=== PATIENT | female | born 1960 | race African-American/Black ===

== ENCOUNTER 2017-10-23 11:57 | Emergency (ER) | payer SELFPAY ==
[2017-10-23 12:18] VITALS: BP 125/81; PULSE 85; TEMP 98.2; BMI 26.6
[2017-10-23] MEDS ORDERED: diphenhydrAMINE HCL 25 MG CAPSULE (FP) PO ONE ×2 (13:30→13:31)
--- NOTE | 2017-10-23 13:34 | PDOC ---
History of Present Illness - General Chief Complaint: Bite Stated Complaint: RASH ON LEGS Time Seen by Provider: 10/23/17 13:08 History Source: Patient Exam Limitations: No Limitations - History of Present Illness Initial Comments: 10/23/17 13:30 Patient is a [57 y/o female on methadone, risperadol and lexapro. Reports that she has not taken the medication in two days. Was sitting on her bed today and started to have generalized itching. " Wants to be checked for spores" Denies rash. Denies any chest pain or shortness of breath, denies feeling of anxiety of hurting herself or others. ] Past Medical History: [Denies]. Allergies: No known allergies Medications: [Methadone, Risperdal and Lexapro] Family History: Non-contributory Social History: Denies smoking, alcohol use, or IVDU Review of Systems GENERAL/CONSTITUTIONAL: [No fever or chills. No weakness. No weight change.] HEAD, EYES, EARS, NOSE AND THROAT: [No change in vision. No ear pain or discharge. No sore throat. Eyes are itchy] CARDIOVASCULAR: [No chest pain or shortness of breath.] RESPIRATORY: [No cough, wheezing, or hemoptysis.] GASTROINTESTINAL: [No nausea, vomiting, diarrhea or constipation. No rectal bleeding.] GENITOURINARY: [No dysuria, frequency, or change in urination.] MUSCULOSKELETAL: [No joint or muscle swelling or pain. No neck or back pain.] SKIN : [No rash or easy bruising. Pruritus to upper extremities] NEUROLOGIC: [No headache, vertigo, loss of consciousness, or loss of sensation.] PSYCHIATRIC: [No depression or anxiety.] ENDOCRINE: [No increased thirst. No abnormal weight change.] HEMATOLOGIC/LYMPHATIC: [No anemia, easy bleeding, or history of blood clots.] ALLERGIC/IMMUNOLOGIC: [No hives or skin allergy. No latex allergy.] Physical Exam: GENERAL: [The patient is awake, alert, and fully oriented, in no acute distress. ] HEAD: [Normal with no signs of trauma.] EYES: [Pupils equal, round and reactive to light, extraocular movements intact, sclera anicteric, conjunctiva clear, no foreign body or discoloration. ] ENT: [Ears normal, nares patent, oropharynx clear without exudates. Moist mucous membranes. No uvula deviation] NECK: [Normal range of motion, supple without lymphadenopathy, JVD, or masses.] LUNGS: [Breath sounds equal, clear to auscultation bilaterally. No wheezes, and no crackles.] HEART: [Regular rate and rhythm, normal S1 and S2 without murmur, rub or gallop. ] ABDOMEN: [Soft, nontender, normoactive bowel sounds. No guarding, no rebound. No masses. No bruising or abrasions] RECTAL : [Guaiac negative, normal rectal tone.] MUSCULOSKELETAL: [Normal range of motion, no edema. No clubbing or cyanosis. No cords, erythema, or tenderness. No CVA Tenderness with fist.] NEUROLOGICAL: [Cranial nerves II through XII grossly intact. Normal speech, normal gait.] PSYCH: [Normal mood, flat affect.] SKIN: [Warm, Dry, normal turgor, no rashes or lesions noted.] 10/23/17 13:58 10/23/17 16:54 Past History - Past Medical History Allergies/Adverse Reactions: Allergies Allergy/AdvReac Type Severity Reaction Status Date / Time cats and hayfever Allergy Intermediate Itching Uncoded 10/23/17 12:13 Home Medications: Ambulatory Orders Methadone HCl [Methadone Intensol] 130 mg PO DAILY 08/15/14 Diphenhydramine HCl [Benadryl -] 25 mg PO Q8H #15 capsule 10/23/17 Escitalopram Oxalate [Lexapro -] 5 mg PO DAILY 10/23/17 Risperidone [Risperdal -] 0.5 mg PO ASDIR 10/23/17 Asthma: Yes COPD: No Liver Disease: Yes (cirrhosis) - Surgical History GI Surgery: Yes (GASTRIC BYPASS) - Immunization History Immunization Up to Date: Yes - Suicide/Smoking/Psychosocial Hx Smoking History: Current every day smoker Have you smoked in the past 12 months: Yes Number of Cigarettes Smoked Daily: 10 Information on smoking cessation initiated: No Hx Alcohol Use: No Drug/Substance Use Hx: No Substance Use Type: Alcohol, Cocaine, Heroin Hx Substance Use Treatment: Yes (in [facility]) *Physical Exam - Vital Signs Last Vital Signs Temp Pulse Resp BP Pulse Ox 98.2 F 85 16 125/81 98 10/23/17 12:14 10/23/17 12:14 10/23/17 12:14 10/23/17 12:14 10/23/17 12:14 Medical Decision Making - Medical Decision Making 10/23/17 14:02 A/P: Patient here for evaluation of itchiness to upper extremities and itchy eyes, has not taken her Risperdal or her Lexapro in 2 days which may be attributing to her symptoms. Patient denies any abdominal pain, no chest pain or shortness of breath. Benadryl 25 mg by mouth ordered will reevaluate 10/23/17 16:54 Patient states that itching is resolved after the Benadryl will follow-up with her primary care doctor tomorrow. There is no visible rash, eyes are clear. I discussed the physical exam findings, ancillary test results and final diagnoses with the patient. I answered all of the patient's questions. The patient was satisfied with the care received and felt comfortable with the discharge plan and treatment plan. The patient will call to arrange follow-up and will return to the Emergency Department with any new, persistent or worsening symptoms. *DC/Admit/Observation/Transfer Diagnosis at time of Disposition: Itching - Discharge Dispostion Disposition: HOME Condition at time of disposition: Good Admit: No - Prescriptions Prescriptions: Diphenhydramine HCl [Benadryl -] 25 mg PO Q8H #15 capsule - Referrals Referrals: Eunice Carvajal MD [Primary Care Provider] - - Patient Instructions Printed Discharge Instructions: DI for Itching Additional Instructions: PLease take benadryl as needed, one tablet every 8 hours. Please take your medication as prescribed. Follow up with PMD. - Post Discharge Activity
== END 2017-10-23 14:44 | disposition home or self-care (01) ==
LOC: JERFT 11:57
DX: L29.8 Other pruritus (principal); Z91.14 Patient's other noncompliance with medication regimen; J45.909 Unspecified asthma, uncomplicated; K74.60 Unspecified cirrhosis of liver; F17.210 Nicotine dependence, cigarettes, uncomplicated; Z98.84 Bariatric surgery status
CPT/HCPCS: 99281-25

== ENCOUNTER 2019-05-01 09:14 | Emergency (ER) | payer OTHER | END 2019-05-01 12:16 | disposition home or self-care (01) | LOC: JERFT 09:14 ==

== ENCOUNTER 2019-08-27 21:28 | Emergency (ER) | payer OTHER ==
[2019-08-27 21:48] VITALS: BP 105/72; PULSE 89; TEMP 98.2; BMI 24.7
--- NOTE | 2019-08-28 00:11 | PDOC ---
History of Present Illness - General Chief Complaint: Pain Stated Complaint: ABD PAIN Time Seen by Provider: 08/27/19 23:48 - History of Present Illness Initial Comments: 59 year female history of gastric bypass, allergic rhinitis, on methadone (20 daily) presents with a few chronic complaints including abdominal pain, upper back pain, and congestion. She states that she has had this abdominal pain for the past few months intermittently and states that she has been diagnosed with intestinal obstruction a week ago at [facility] and states that they discharged her despite stating that it didn't respond. Denies nausea, vomiting, fevers, chest pain, or other symptoms but does admit to diarrhea. 08/28/19 00:42 Past History - Past Medical History Allergies/Adverse Reactions: Allergies Allergy/AdvReac Type Severity Reaction Status Date / Time cat dander Allergy Intermediate Itching Verified 08/28/19 03:17 cats and hayfever Allergy Intermediate Itching Uncoded 08/28/19 03:16 Home Medications: Ambulatory Orders Methadone [Dolophine -] 50 mg PO DAILY 03/25/18 Simethicone Liquid [Mylicon Liquid -] 40 mg PO QID PRN #1 bottle 08/28/19 Anemia: No Asthma: No Cancer: No Cardiac Disorders: No CVA: No COPD: No CHF: No Dementia: No Diabetes: No GI Disorders: Yes (COLITIS) Disorders: No HTN: No Hypercholesterolemia: No Kidney Stones: No Liver Disease: No Seizures: No Thyroid Disease: No - Surgical History Abdominal Surgery: No Cardiac Surgery: No Cholecystectomy: No GI Surgery: Yes (GASTRIC BYPASS) Lung Surgery: No Neurologic Surgery: No Orthopedic Surgery: No - Immunization History Immunization Up to Date: Yes - Psycho Social/Smoking Cessation Hx Smoking History: Never smoked Have you smoked in the past 12 months: Yes Number of Cigarettes Smoked Daily: 2 Cigars Per Day: 0 Information on smoking cessation initiated: No Hx Alcohol Use: No Drug/Substance Use Hx: No Substance Use Type: Cocaine, Marijuana Hx Substance Use Treatment: No Review of Systems - Review of Systems Constitutional: No: Chills, Diaphoresis, Fever HEENTM: No: Blurred Vision, Tearing, Recent change in vision Respiratory: No: Cough, Orthopnea, Shortness of Breath Cardiac (ROS): No: Chest Pain, Irregular Heart Rate ABD/GI: Yes: Diarrhea. No: Nausea, Vomiting : No: Dysuria, Discharge, Frequency Musculoskeletal: Yes: Back Pain. No: Joint Pain, Joint Swelling Neurological: No: Headache, Numbness, Paresthesia Psychiatric: No: Anxiety, Depression Endocrine: No: Flushing, Intolerance to Cold Hematologic/Lymphatic: No: Anemia, Blood Clots, Easy Bleeding *Physical Exam - Vital Signs Last Vital Signs Temp Pulse Resp BP Pulse Ox 98.2 F 89 17 105/72 100 08/27/19 21:33 08/27/19 21:33 08/27/19 21:33 08/27/19 21:33 08/27/19 21:33 - Physical Exam General Appearance: Yes: Nourished, Appropriately Dressed. No: Apparent Distress HEENT: positive: EOMI, FREEDOM, Normal ENT Inspection, Normal Voice, Nasal Congestion Neck: positive: Trachea midline, Normal Thyroid, Supple, Lymphadenopathy (R). negative: Tender, Rigid Respiratory/Chest: positive: Lungs Clear, Normal Breath Sounds. negative: Chest Tender, Respiratory Distress Cardiovascular: positive: Regular Rhythm, Regular Rate Gastrointestinal/Abdominal: positive: Soft, Protuberent. negative: Normal Bowel Sounds (hyperactive bs), Tender, Flat, Guarding, Rebound, Tenderness, Hernia, Mass Lymphatic: negative: Adenopathy, Tenderness Musculoskeletal: positive: Normal Inspection. negative: Decreased Range of Motion Extremity: positive: Normal Capillary Refill, Normal Inspection, Normal Range of Motion. negative: Tender Integumentary: positive: Normal Color, Dry, Warm Neurologic: positive: Fully Oriented, Alert, Normal Mood/Affect, Normal Response , Motor Strength 5/5 ED Treatment Course - LABORATORY CBC & Chemistry Diagram: 08/28/19 00:35 08/28/19 00:35 Medical Decision Making - Medical Decision Making 59 year old female with history of bypass presenting with "bloating" and diarrhe afor the past few days. denies fevers, chills, nausea, vomiting, or other symptoms. Labs WNL and CT demonstrating gas throughout bowels and concern for diarrheal illness. There was also a read of pneumatosis but discussed this with radiology and they did not believe that it was due to ischemia and instead due to distension. Patient has normal lactic acid, stbale vitals, and abdominal exam is non peritoneal or surgical. Tolerated PO. Will DC patient with simethacone as she feels better. 08/28/19 03:24 Discharge - Discharge Information Problems reviewed: Yes Clinical Impression/Diagnosis: Pain Chronic knee pain Qualifiers: Laterality: bilateral Qualified Code(s): M25.561 - Pain in right knee; M25.562 - Pain in left knee; G89.29 - Other chronic pain Abdominal pain Qualifiers: Abdominal location: generalized Qualified Code(s): R10.84 - Generalized abdominal pain Disposition: HOME - Admission No - Additional Discharge Information Prescriptions: Simethicone Liquid [Mylicon Liquid -] 40 mg PO QID PRN #1 bottle PRN Reason: Gas - Follow up/Referral Referrals: [facility] [Provider Group] - Patient Discharge Instructions Patient Printed Discharge Instructions: Diarrhea Additional Instructions: Please use the simeticone as directed for the gas. Please continue to eat and drink soft foods easy on your stomach. Please follow up with your doctor or use the doctor on this sheet. Please return to the ED if you have new or worsening symptoms. - Post Discharge Activity
[2019-08-28] MEDS ORDERED: FAMOTIDINE 20 MG/50 ML IVPB 20 MG/50 ML MG IVPB ONE (00:22)
--- NOTE | 2019-08-28 00:36 | PDOC ---
Attending Attestation - Resident Resident Name: Israel Marcano - ED Attending Attestation I have performed the following: I have examined & evaluated the patient, The case was reviewed & discussed with the resident, I agree w/resident's findings & plan, Exceptions are as noted - HPI HPI: 08/28/19 00:59 Ms Ron is a 59 yo F with a h/o gastric bypass and multiple intestinal infections, who presents to the emergency department with left sided, crampy abdominal pain for approximately 4 days. The patient reports her pain is localized to the left upper quadrant. She reports associated constipation 4 days ago, and multiple episodes of malodorous nonbloody diarrhea 3 days ago. She reports nausea and nonbloody/nonbilious vomiting, but denies any changes in appetite.Patient reports her symptoms are similar to when she's had an intestinal infection in the past. She denies any fever or chills. She denies any dysuria, hematuria, frequency, or urgency. She denies any recent travel or sick contacts. - Physicial Exam PE: 08/28/19 01:00 CONSTITUTIONAL: Well-appearing; well-nourished; in no apparent distress HEAD: Normocephalic; atraumatic EYES: PERRL; EOM intact ENMT: External appears normal; normal oropharynx NECK: Supple; non-tender; no cervical lymphadenopathy. CARD: Normal S1, S2; no murmurs, rubs, or gallops RESP: Normal chest excursion with respiration; breath sounds clear and equal bilaterally; no wheezes, rhonchi, or rales ABD: Surgical scar. Mild LUQ tenderness, soft, but distended. Decreased bowel sounds. No palpable organomegaly, no palpable hernias EXT: Normal ROM in all four extremities; non-tender to palpation; distal pulses intact SKIN: Warm, dry, no rash NEURO: No focal neurological deficiencies. - Medical Decision Making 08/28/19 01:00 Patient is a 58-year-old female status post gastric bypass who presents to the ER with left-sided abdominal pain PT also reports shortness of breath/wheezing Differential diagnoses includes colitis versus acute gastroenteritis versus ileus versus SBO. Will obtain CBC/CMP/UA. Will obtain CT w/IV contrast Re assess 08/28/19 01:01 Respiratory symptoms have improved after saline neb 08/28/19 03:27 Laboratory Tests 08/28/19 08/28/19 08/28/19 00:35 00:35 00:35 WBC 4.9 Hgb 12.0 Hct 36.8 Plt Count 154 INR 0.97 BUN [address]: EXAM: ABDOMEN \T\ PELVIS CT WITH CONTR HISTORY: Rule out obstruction COMPARISON: None. FINDINGS: Lung bases are clear. The visualized cardiac chambers are normal size and configuration. Status post cholecystectomy with mild biliary duct dilation. Normal pancreas, spleen, adrenal glands and kidneys. Status post gastric bypass without bowel obstruction or inflammation. There is diffuse colonic distention with air and liquid stool up to 6.7 cm which may indicate colonic ileus and/or diarrheal illness. No colonic wall thickening, although there is mild right colonic pneumatosis.. There is no aortic aneurysm. There is no significant retroperitoneal lymphadenopathy. The appendix is normal The uterus and adnexal structures are grossly normal though partially obscured by streak artifact from a right hip prosthesis. Urinary bladder is normal but partially obscured. There is no pelvic free fluid. No discrete pelvic lymphadenopathy is identified. IMPRESSION: Colonic ileus and/or diarrheal illness without bowel obstruction or bowel wall thickening. Right colonic pneumatosis also raises the possibility of bowel ischemia although this is considered less likely. 08/28/19 04:10 Pt po challenged Tolerated this with no vomiting Review of prior CT, demonstrates similar findings Call placed to radiologist: what he has read as pneumatosis is not clearly that and he does not believe this represents ischemic bowel Will ask pt to follow up with PMD Return to the ER for any other concerns or complaints
[2019-08-28] MEDS ORDERED: SODIUM CHLORIDE FOR INHALATION 3 ML VIAL.NEB IH ONE (00:38)
[2019-08-28 00:55] LABS: BASO % 0.5 % (0-2.0); HEMATOCRIT 36.8 % (32.4-45.2); LYMPH % 35.8 % (8-40); MCH 30.2 pg (25.7-33.7); MCHC 32.7 g/dl (32.0-36.0); MEAN CELL VOLUME 92.4 fl (80-96); MEAN PLT VOLUME 8.7 fl (7.5-11.1); MONO % 9.1 % (3.8-10.2); NEUT % 52.6 % (42.8-82.8); PLATELET COUNT 154 K/MM3 (134-434); RBC 3.98 M/mm3 (3.60-5.2); WHITE BLOOD COUNT 4.9 K/mm3 (4.0-10.0)
[2019-08-28 01:06] LABS: INR 0.97 (0.83-1.09); PROTHROMBIN TIME (PATIENT) 11.5 SEC (9.7-13.0)
[2019-08-28 01:22] LABS: ALBUMIN 4.1 g/dl (3.4-5.0); BILIRUBIN,TOTAL 0.6 mg/dL (0.2-1); BLOOD UREA NITROGEN 9.5 mg/dL (7-18); CALCIUM 9.1 mg/dL (8.5-10.1); CREATININE 0.9 mg/dL (0.55-1.3); POTASSIUM 3.6 mmol/L (3.5-5.1); TOT PROT 7.6 g/dl (6.4-8.2)
== END 2019-08-28 04:32 | disposition home or self-care (01) ==
LOC: JER 21:28
PROC: 3E033GC Introduction of Other Therapeutic Substance into Peripheral Vein, Percutaneous Approach (ICD-10-PCS; principal; 2019-08-27)
PROC: 3E0F7GC Introduction of Other Therapeutic Substance into Respiratory Tract, Via Natural or Artificial Opening (ICD-10-PCS; 2019-08-27)
DX: R10.84 Generalized abdominal pain (principal); R14.1 Gas pain; M25.561 Pain in right knee; M25.562 Pain in left knee; G89.29 Other chronic pain; Z98.84 Bariatric surgery status; Z87.19 Personal history of other diseases of the digestive system; J30.81 Allergic rhinitis due to animal (cat) (dog) hair and dander; Z91.048 Other nonmedicinal substance allergy status
CPT/HCPCS: 36415; 74177-TC; 80053; 83605; 83690; 85025; 85610; 94640; 96365; 99282-25

== ENCOUNTER 2021-01-10 09:07 | Emergency (ER) | payer OTHER ==
[2021-01-10 09:19] VITALS: TEMP 97.8; BMI 20.9
[2021-01-10 10:07] VITALS: BP 113/69; PULSE 81
[2021-01-10 11:14] LABS: BASO % 0.5 % (0-2.0); EOS % 1.5 % (0-4.5); HEMATOCRIT 30.8 % (32.4-45.2); LYMPH % 32.3 % (8-40); MCH 30.7 pg (25.7-33.7); MCHC 32.5 g/dl (32.0-36.0); MEAN CELL VOLUME 94.3 fl (80-96); MEAN PLT VOLUME 9.5 fl (7.5-11.1); MONO % 5.9 % (3.8-10.2); NEUT % 59.8 % (42.8-82.8); PLATELET COUNT 152 K/MM3 (134-434); RBC 3.27 M/mm3 (3.60-5.2); RDW 15.5 % (11.6-15.6); WHITE BLOOD COUNT 3.6 K/mm3 (4.0-10.0)
[2021-01-10 11:28] LABS: CHLORIDE 110 mmol/L (98-107); POTASSIUM 3.9 mmol/L (3.5-5.1); SODIUM 143 mmol/L (136-145)
[2021-01-10 11:30] LABS: CALCIUM 9.6 mg/dL (8.5-10.1)
[2021-01-10 11:31] LABS: ANION GAP 9 MMOL/L (8-16); BLOOD UREA NITROGEN 14.7 mg/dL (7-18); CO2 24 mmol/L (21-32); GLUCOSE,RANDOM 86 mg/dL (74-106)
[2021-01-10 11:34] LABS: CREATININE 0.8 mg/dL (0.55-1.3); SGOT/AST 20 U/L (15-37); SGPT/ALT 28 U/L (13-61)
[2021-01-10 11:35] LABS: BILIRUBIN,TOTAL 0.5 mg/dL (0.2-1)
[2021-01-10 11:36] LABS: TOT PROT 7.2 g/dl (6.4-8.2)
[2021-01-10 11:37] LABS: ALK PHOS 108 U/L (45-117)
[2021-01-10] MEDS ORDERED: LIDOCAINE 5% TOPICAL PATCH TP ONE (12:57)
[2021-01-10] MEDS ORDERED: ACETAMINOPHEN 500 MG TABLET (FP) PO ONE (12:57)
[2021-01-10] MEDS ORDERED: LIDOCAINE 5% TOPICAL PATCH ONE (13:07)
[2021-01-10] MEDS ORDERED: ACETAMINOPHEN 325 MG TABLET (FP) ONE (13:07)
[2021-01-10 14:05] LABS: PH,URINE 5.5 (5.0-8.0); URINE APPEARANCE CLEAR; URINE BILIRUBIN NEGATIVE (NEGATIVE); URINE COLOR YELLOW; URINE GLUCOSE (UA) NEGATIVE (NEGATIVE); URINE KETONE NEGATIVE (NEGATIVE); URINE LEUK ESTERASE NEGATIVE (NEGATIVE); URINE NITRITE NEGATIVE (NEGATIVE); URINE PROTEIN NEGATIVE (NEGATIVE); URINE UROBILINOGEN 0.2 mg/dL (0.2-1.0)
[2021-01-10] MEDS ORDERED: LIDOCAINE PATCH REMOVAL MC ONE (22:00)
== END 2021-01-10 15:49 | disposition home or self-care (01) ==
LOC: JER 09:07
DX: M48.062 Spinal stenosis, lumbar region with neurogenic claudication (principal)
CPT/HCPCS: 36415; 72131-TC; 80053; 80307; 81003; 84484; 85025; 87086; 93005; 93010; 99285-25; C9803; U0003

== ENCOUNTER 2021-01-17 01:17 | Emergency (ER) | payer OTHER ==
[2021-01-17 01:33] VITALS: BP 110/67; PULSE 81; TEMP 98.1; BMI 21.4
[2021-01-17] MEDS ORDERED: ACETAMINOPHEN 500 MG TABLET (FP) PO ONE (01:49)
[2021-01-17] MEDS ORDERED: ACETAMINOPHEN 325 MG TABLET (FP) ONE (02:00)
[2021-01-17 03:57] LABS: BASO % 0.4 % (0-2.0); EOS % 1.2 % (0-4.5); HEMATOCRIT 29.6 % (32.4-45.2); HEMOGLOBIN 9.6 GM/dL (10.7-15.3); LYMPH % 40.7 % (8-40); MCH 30.1 pg (25.7-33.7); MCHC 32.4 g/dl (32.0-36.0); MEAN PLT VOLUME 8.6 fl (7.5-11.1); MONO % 7.6 % (3.8-10.2); NEUT % 50.1 % (42.8-82.8); PLATELET COUNT 149 K/MM3 (134-434); RBC 3.19 M/mm3 (3.60-5.2); RDW 15.1 % (11.6-15.6); WHITE BLOOD COUNT 3.8 K/mm3 (4.0-10.0)
[2021-01-17 04:23] LABS: CHLORIDE 112 mmol/L (98-107); POTASSIUM 3.5 mmol/L (3.5-5.1); SODIUM 144 mmol/L (136-145)
[2021-01-17 04:25] LABS: ANION GAP 6 MMOL/L (8-16); CALCIUM 8.6 mg/dL (8.5-10.1); CO2 26 mmol/L (21-32)
[2021-01-17 04:26] LABS: ALBUMIN 3.4 g/dl (3.4-5.0); BLOOD UREA NITROGEN 15.1 mg/dL (7-18); GLUCOSE,RANDOM 79 mg/dL (74-106)
[2021-01-17 04:29] LABS: CREATININE 0.7 mg/dL (0.55-1.3); SGOT/AST 14 U/L (15-37); SGPT/ALT 27 U/L (13-61)
[2021-01-17 04:30] LABS: BILIRUBIN,TOTAL 0.4 mg/dL (0.2-1); TOT PROT 6.4 g/dl (6.4-8.2)
[2021-01-17 04:32] LABS: ALK PHOS 95 U/L (45-117)
== END 2021-01-17 06:31 | disposition short-term general hospital (02) ==
LOC: JER 01:17
DX: M25.551 Pain in right hip (principal)
CPT/HCPCS: 70450-TC; 71045-TC-FY; 72125-TC; 72192-TC; 80053; 80307; 82140; 84484; 85025; 93005; 93010; 99284-25